=== PATIENT | female | born 1970 | race Caucasian/White ===

== ENCOUNTER 2021-08-08 15:51 | Emergency (ER) | payer OTHER ==
[~2021-08-08] VITALS: Ht 167.6 cm; Wt 109.1 kg
[2021-08-08] MEDS ORDERED: ACETAMINOPHEN 500 MG TABLET PO ONE (17:00)
[2021-08-08] MEDS ORDERED: KETOROLAC TROMETHAMINE 30 MG/ML VIAL IVP ONE (17:00)
[2021-08-08] MEDS ORDERED: DIAZEPAM 5 MG TABLET PO ONE (17:00)
[2021-08-08 17:06] LABS: GLUCOSE,POINT OF CARE 190 MG/DL (70-110)
[2021-08-08 17:40] LABS: COVID AG,FIA SOURCE NASAL SWAB
[2021-08-08 18:12] LABS: BASOPHILS % (AUTO) 0.8 % (0.0-2.0); EOSINOPHILS % (AUTO) 1.4 % (1.0-6.0); HEMATOCRIT 24.1 % (36-46); HEMOGLOBIN 8.3 g/dL (12.0-16.0); LYMPHOCYTES # (AUTO) 0.6 K/uL (1.0-4.8); LYMPHOCYTES % (AUTO) 15.6 % (22.0-44.0); MEAN CORPUSCULAR HEMOGLOBIN 31.6 pg (26.0-34.0); MEAN CORPUSCULAR HGB CONC 34.4 G/dL (31.0-37.0); MEAN CORPUSCULAR VOLUME 92 fL (80-100); MONOCYTES # (AUTO) 0.6 K/uL (0.1-1.0); MONOCYTES % (AUTO) 16.3 % (2.0-9.0); NEUTROPHILS # (AUTO) 2.6 K/uL (1.8-7.7); NEUTROPHILS % (AUTO) 65.9 % (40.0-70.0); PLATELET COUNT (AUTO) 152 K/uL (150-450); RED BLOOD CELL COUNT(AUTO) 2.62 MIL/uL (4.00-5.20); RED CELL DISTRIBUTION WIDTH 14.4 % (11.5-14.5)
[2021-08-08 18:21] LABS: CALCIUM, TOTAL 8.8 mg/dL (8.8-10.5); CREATININE 2.42 mg/dL (0.60-1.30); POTASSIUM 4.8 mmol/L (3.5-5.1)
[2021-08-08 18:27] LABS: ALBUMIN 1.5 g/dL (3.4-5.0); BILIRUBIN,TOTAL 0.2 mg/dL (0.1-1.0); TOTAL PROTEIN, SERUM 5.4 g/dL (6.4-8.2)
[2021-08-08] MEDS ORDERED: RINGERS SOLUTION,LACTATED 500 ML IV ONE ×2 (19:45→20:00)
[2021-08-09] MEDS ORDERED: ACETAMINOPHEN 500 MG TABLET PO ONE (05:00)
[2021-08-09] MEDS ORDERED: IBUPROFEN 800 MG TABLET PO ONE (05:00)
[2021-08-09] MEDS ORDERED: LIDOCAINE 5% TRANSDERMAL PATCH TD ONE (06:45)
[2021-08-09 07:16] VITALS: BP 176/99
== END 2021-08-09 10:37 | disposition home or self-care (01) ==
LOC: EMS 15:51
DX: U07.1 COVID-19 (principal); G89.29 Other chronic pain; M54.50 Low back pain, unspecified
CPT/HCPCS: 71046; 80053; 82962; 83690; 85025; 87426; 96374; 99284; J1885; J7120